=== PATIENT | male | born 1975 | race Two or more races ===

== ENCOUNTER 2020-07-01 06:14 | Day surgery (SDC) | payer OTHER ==
[2020-07-01] MEDS ORDERED: PERCOCET 5-3251 EACH PO (12:08)
[2020-07-01] MEDS ORDERED: NEURONTIN800 MG PO (12:09)
[2020-07-01] MEDS ORDERED: POLY119PG PO (12:09)
[2020-07-01] MEDS ORDERED: SURFAK240 M1 PO (12:09)
== END 2020-07-01 16:05 | disposition home or self-care (01) ==
LOC: CIR.AMB 06:14
PROVIDERS: ATTEND Surgery
DX: K42.9 Umbilical hernia without obstruction or gangrene (principal); K40.90 Unilateral inguinal hernia, without obstruction or gangrene, not specified as recurrent; K43.2 Incisional hernia without obstruction or gangrene; Z20.822 Contact with and (suspected) exposure to COVID-19; K43.0 Incisional hernia with obstruction, without gangrene